=== PATIENT | female | born 1995 | race Caucasian/White ===

== ENCOUNTER → 2021-01-17 13:07 | Outpatient (CLI) | payer SELFPAY ==
[2021-01-17 15:38] LABS: Hematocrit 40.6 % (37-47); Hemoglobin 13.2 g/dL (12.0-15.0); Mean Corp Hgb Conc 32.5 g/dL (32-36); Mean Corpuscular Hgb 29.2 pg (27.0-32.0); Mean Corpuscular Volume 89.8 fL (81-99); Mean Platelet Vol. 9.9 fl (6.2-12.0); Platelet Count 252 K/mm3 (150-450); RBC Distribution Width CV 12.1 % (11.6-14.6); RBC Distribution Width SD 40.3 fl (35.1-43.9); Red Blood Count 4.52 M/mm3 (4.2-5.4); White Blood Count 4.6 K/mm3 (4.4-11.0)
[2021-01-17 17:08] LABS: Follicle Stimulating Hormone 6.9 mIU/mL; Luteinizing Hormone 8.9 mIU/mL; Prolactin 8.2 ng/mL; T4 Free Direct 1.12 ng/dL (0.76-1.46)
[2021-01-21 20:17] LABS: Testosterone Free 1.6 pg/mL (0.0-4.2)
[2021-01-25 23:04] LABS: 17-Hydroxyprogesterone 62 ng/dL (.)
== END ==
PROVIDERS: PCP Family Medicine; Visit Provider Student in an Organized Health Care Education/Training Program
DX: N92.6 Irregular menstruation, unspecified (principal)
CPT/HCPCS: 36415; 82627; 83001; 83002; 83498; 84146; 84402; 84439; 84443; 85027; 86850; 86900; 86901; 82626

== ENCOUNTER → 2021-02-04 11:03 | Outpatient (CLI) | payer SELFPAY ==
[2021-02-04 14:41] LABS: Progesterone Level 16.25 ng/mL (See Comment)
== END ==
PROVIDERS: PCP Family Medicine; Visit Provider Student in an Organized Health Care Education/Training Program
DX: N92.6 Irregular menstruation, unspecified (principal)
CPT/HCPCS: 36415; 84144